=== PATIENT | male | born 1965 | race Two or more races ===

== ENCOUNTER 2020-02-25 00:15 | Inpatient (IN) | payer OTHER ==
[~2020-02-25] VITALS: Ht 175.3 cm; Wt 113.4 kg
[2020-02-25] MEDS ORDERED: DEXILANT30 MG (00:31)
[2020-02-25] MEDS ORDERED: FORTAMET500 MG PO (00:31)
--- NOTE | 2020-02-25 00:51 | NUR ---
SE RECIBE PTE ALERTA Y ORIENTADO POR THERON. PTE REFIERE QUE PRESENTA VOMITOS Y DIARREAS DESDE EL VIERNES Y REFIERE EDINSON SUFRIDO CAIDA EN EL NIDIA DE SURESH CASA EL VIERNES GOLPEANDOSE CON LA PARED EN LADO DERECHO DE LA FRENTE. LA ESPOSA REFIERE QUE EL PT PERDIO CONOCIMIENTO NEREIDA NO QUISO IR [facility]. ESPOSA INDICA QUE EL PACIENTE PRESENTO UN EPISODIO DE CONVULSION A LAS 11:00PM DE PHILLY SE OBSERVA A PTE SUDOROSO Y PALIDO. SE LE REALIZA A PTE EKG Y SE LE PRESENTA A DR. PICHARDO. PTE ES COLOCADO EN AREA DE OBSERVACION CON BARANDAS ELEVADAS.
--- NOTE | 2020-02-25 01:48 | NUR ---
EVALUA PTE. SE EDUCA A PTE SOBRE TX MEDICO. PTE REFIERE COMPRENDER. SE REALIZAN MUESTRAS DE LABORATORIO BAJO MEDIDAS ASEPTICAS. SE ADMINISTRAN MEDICAMENTOS JEAN ORDEN MEDICA. SE NOTIFICA DYLAN X Y CT.PENDIENTE RE-EVALUACION MEDICA.
--- NOTE | 2020-02-25 07:25 | NUR ---
PACIENTE ALERTA Y ORIENTADO EN OC THERON ESFERAS, PRESENTA BUEN PATRON RESPIRATORIO Y KHOI DE DOLOR. CANALIZADO EN BRAZO LT PATENTE Y KHOI DE S/S DE FLEBITIS E INFILTRACION, RECIBIENDO 0.9% NSS A 150 ML/HR. PENDIENTE MUESTRA DE ORINA Y DE ESCRETA (TIENE ENVASES), PENDIENTE RESULTADOS DE MUESTRAS DE KAYLEY, DR WENDY VALDES EVALUA PACIENTE Y ORDENA ADMINISTRAR DOS 0.9% NSS FULL DRIP Y PROTONIX 40 MG IV.
[2020-02-27] MEDS ORDERED: INTESTINEX680 M1 PO (09:25)
[2020-02-27] MEDS ORDERED: AMOX1TAB5 PO ×2 (09:28→09:42)
[2020-02-27] MEDS ORDERED: PULMICORT FLEX90 MCG IH ×2 (09:29→09:42)
[2020-02-27] MEDS ORDERED: NASAL MIST126 ML NASAL ×2 (09:29→09:30)
[2020-02-27] MEDS ORDERED: NASAL MIST126 ML NS (09:29)
[2020-02-27] MEDS ORDERED: Proventyl Hfa 200 ME IH (09:42)
[2020-02-27] MEDS ORDERED: PROTONIX IV40 MG IV (09:42)
[2020-02-27] MEDS ORDERED: HYOSCYAMINE0.125 M1 SL (09:42)
== END 2020-02-27 11:49 | disposition home or self-care (01) | DRG 178 ==
LOC: ER 00:15 → MEDJ 09:49 → SURH 09:49 → MEDJ 13:21
PROVIDERS: ADMIT Internal Medicine; ATTEND Internal Medicine
PROC: 8E0ZXY6 Isolation (ICD-10-PCS; principal; 2020-02-25)
PROC: BW28ZZZ Computerized Tomography (CT Scan) of Head (ICD-10-PCS; 2020-02-25)
PROC: 3E0F7SF Introduction of Other Gas into Respiratory Tract, Via Natural or Artificial Opening (ICD-10-PCS; 2020-02-25)
PROC: BW21ZZZ Computerized Tomography (CT Scan) of Abdomen and Pelvis (ICD-10-PCS; 2020-02-25)
PROC: CB2YYZZ Tomographic (Tomo) Nuclear Medicine Imaging of Respiratory System using Other Radionuclide (ICD-10-PCS; 2020-02-25)
DX: U07.1 COVID-19 (principal); A09 Infectious gastroenteritis and colitis, unspecified; R55 Syncope and collapse; E86.0 Dehydration

== ENCOUNTER 2020-10-21 11:45 | Outpatient (CLI) | payer OTHER ==
[~2020-10-21 11:45] MED LIST: AMOX1TAB5 PO; DEXILANT30 MG; FORTAMET500 MG PO; HYOSCYAMINE0.125 M1 SL; INTESTINEX680 M1 PO; NASAL MIST126 ML NASAL; NASAL MIST126 ML NS; PROTONIX IV40 MG IV; PULMICORT FLEX90 MCG IH; Proventyl Hfa 200 ME IH
== END 2020-10-21 13:45 | disposition home or self-care (01) ==
LOC: ASH CLINIC 11:45
PROVIDERS: ATTEND Internal Medicine
DX: Z23 Encounter for immunization (principal); U07.1 COVID-19